=== PATIENT | female | born 1955 | race Caucasian/White ===

== ENCOUNTER 2019-11-10 22:30 | Emergency (ER) | payer SELFPAY ==
--- NOTE | 2019-11-10 23:21 | ER Document Report ---
ED General - General Chief Complaint: Fall Stated Complaint: FALL Time Seen by Provider: 11/10/19 23:19 - HPI Notes: 64-year-old female arrives following fall. Patient refuses to answer questions about her visit to the emergency department today. Information is obtained from nursing and EMS report. Per EMS, patient fell off a barstool and hit the back of her head. A c-collar was initially placed however patient refusing to wear it. - Related Data Allergies/Adverse Reactions: No Known Allergies Allergy (Unverified 11/10/19 22:44) Past Medical History - General Information source: Emergency Med Personnel Cannot obtain history due to: Uncooperative - Social History Smoking Status: Current Every Day Smoker Frequency of alcohol use: Occasional Drug Abuse: None Family History: Other Review of Systems - Review of Systems -: Yes ROS unobtainable due to patient's medical condition Physical Exam - Vital signs Vitals: Temp 97.2 F 11/10/19 22:46 - General General appearance: Other - Initially sleeping, awoken to voice In distress: None - HEENT Head: Normocephalic, Atraumatic. No: Velarde's sign, Ecchymosis, Open wounds Extraocular movements intact: Yes Pupils: PERRL Neck: Other - No midline tenderness. Refusing to wear c-collar. - Respiratory Chest status: Nontender Breath sounds: Normal - Cardiovascular Rhythm: Regular Heart sounds: Normal auscultation - Abdominal Tenderness: Nontender - Back Back: Nontender. No: Deformity/step-off - Extremities General upper extremity: Normal inspection, Normal ROM General lower extremity: Normal inspection, Normal ROM Notes: Major joints palpated. There is no tenderness to bilateral arms, chest/thorax, back, pelvis, lower extremities - Neurological Neuro grossly intact: Yes [place] Coma Scale Eye Opening: Spontaneous [place] Coma Scale Verbal: Oriented [place] Coma Scale Motor: Obeys Commands [place] Coma Scale Total: 15 Speech: Normal Motor strength normal: LUE, RUE, LLE, RLE - Psychological Associated symptoms: Agitated, Irritable - Skin Skin Temperature: Warm Course - Re-evaluation Re-evalutation: 64-year-old female arrives via EMS after she fell backwards off of a barstool, hitting her head. Patient refusing to answer questions at this time. She is alert and communicates, though most of what she says is profanities, she is also attempting to call her daughter. She is a GCS 15, she has no gross neuro deficits. No obvious scalp lacerations, no C-spine tenderness. Major joints palpated do not find any tenderness. CT head/C-spine ordered to assess given her age and presumed alcohol intoxication. Vitals stable. 11/10/19 23:44 Patient putting up resistance and declining CT exam with nursing. I went in to address with her, I explained that given her age and mechanism it is my duty to rule out intracranial or C-spine trauma. She is agreeable to go to scan. 11/10/19 23:57 Per nursing, patient on CT table however being aggressive with staff. Given that these scans are necessary to rule out life-threatening pathology, I have ordered 2.5 mg IM Haldol to help calm patient 11/11/19 00:13 After coming back from CT, patient became aggressive again towards staff. Security in the room to restrain her. She has received Haldol already, have ordered Ativan and Benadryl to further decrease her agitation 11/11/19 00:30 Patient loudly yelling multiple profanities and threatening statements 11/11/19 00:36 Received call from radiology, there is a nondepressed left occipital fracture with a small amount of associated subarachnoid hemorrhage 1 g Keppra IV to beordered 11/11/19 00:45 Called [facility] to initiate transfer 11/11/19 00:50 Trauma transfer to [facility] accepted, Dr Chin Additionally, patient's first name is Swati per transfer center 11/11/19 01:02 Given patient's continued agitation and concern for interfering with necessary treatment, have ordered 100mg IM ketamine - Vital Signs Vital signs: Temp Pulse Resp BP Pulse Ox 97.2 F 65 18 121/81 96 11/10/19 22:51 11/10/19 22:51 11/10/19 22:51 11/10/19 22:51 11/10/19 22:51 - Diagnostic Test Radiology reviewed: Image reviewed, Reports reviewed Discharge - Discharge Clinical Impression: Fall from stool, Aggressive behavior, SAH (subarachnoid hemorrhage) Skull fracture Qualifiers: Encounter type: initial encounter Skull bone/location: occipital bone Fracture type: closed Occipital fracture type: unspecified fracture of occiput Laterality: left Qualified Code(s): S02.119A - Unspecified fracture of occiput, initial encounter for closed fracture Disposition: [facility]
[2019-11-10] MEDS ORDERED: HALOPERIDOL LACTATE INJ 5 MG/1 ML VIAL IM ONE (23:56)
[2019-11-11] MEDS ORDERED: DIPHENHYDRAMINE HCL 50 MG/ML VIAL IM ONE (00:11)
[2019-11-11] MEDS ORDERED: LORAZEPAM INJ 2 MG/1 ML VIAL IM ONE (00:11)
--- NOTE | 2019-11-11 00:39 | RADIOLOGY REPORT (SQ) ---
EXAM DESCRIPTION: CT CERVICAL SPINE WITHOUT IV CONTRAST COMPLETED DATE/TME: 11/10/2019 23:27 CLINICAL HISTORY: Fall, head trauma COMPARISON: None available TECHNIQUE: Axial CT of the cervical spine obtained without contrast. FINDINGS: Straightening of the cervical lordosis may be secondary to patient positioning. Anterior fixation at C6/7. The atlantoaxial, atlantodental, and occipitoatlantal intervals are preserved. No acute fracture of the cervical spine identified. Prevertebral soft tissues are unremarkable. Moderate loss of intervertebral disc height with endplate spondylosis at C5/6. Mild multilevel facet arthropathy. Partial visualization of nondepressed left occipital skull fracture. No fracture of the visualized facial bones. Visualized mastoid air cells and paranasal sinuses are well aerated. Visualized thyroid is unremarkable. No cervical lymphadenopathy. No pneumothorax in the visualized lung apices. IMPRESSION: 1. No acute fracture or subluxation of the cervical spine. 2. Partial visualization of nondepressed left occipital fracture. 3. Multilevel degenerative change of the cervical spine. Prior anterior fixation at C6/7. This exam was performed according to our departmental dose-optimization program, which includes automated exposure control, adjustment of the mA and/or kV according to patient size and/or use of iterative reconstruction technique.
--- NOTE | 2019-11-11 00:41 | RADIOLOGY REPORT (SQ) ---
EXAM DESCRIPTION: CT HEAD WITHOUT IV CONTRAST COMPLETED DATE/TME: 11/10/2019 23:27 CLINICAL HISTORY: Fall, head trauma COMPARISON: None available TECHNIQUE: Axial CT of the head obtained from the skull apex to the skull base without contrast. FINDINGS: Linear focus of hyperdensity best seen on image #19, series 34 within a sulcal space in the left parieto-occipital region concerning for acute subarachnoid hemorrhage. No other areas concerning for acute hemorrhage. No mass effect or midline shift. Nondisplaced left occipital skull fracture. The ventricular system and sulcal spaces are enlarged. Scattered areas of hypodensity throughout the supratentorial white matter are nonspecific and may be related to chronic small vessel ischemic change. The visualized paranasal sinuses and the mastoids are clear. Minimal contusion within the left posterior scalp subcutaneous soft tissues. Visualized orbits and globes are unremarkable. Atherosclerotic calcification of the intracranial internal carotid arteries. IMPRESSION: 1. Possible small volume subarachnoid hemorrhage layering within a left posterior parieto-occipital sulcal space. 2. Nondepressed left occipital calvarial fracture. THIS REPORT CONTAINS FINDINGS THAT MAY BE CRITICAL TO PATIENT CARE: The findings were verbally discussed via telephone conference with Dr. MARILOU ASHTON by Dr. Austin Martin on 11/10/2019 11:38 PM CDT. The results were acknowledged and understood. This exam was performed according to our departmental dose-optimization program, which includes automated exposure control, adjustment of the mA and/or kV according to patient size and/or use of iterative reconstruction technique.
[2019-11-11] MEDS ORDERED: LEVETIRACETAM 1000 MG/NACL-ISO 1,000 MG/100 ML RTUPB IV ONE (00:52)
[2019-11-11] MEDS ORDERED: KETAMINE HCL INJ 500 MG/10 ML VIAL IM ONE (01:00)
[2019-11-11 01:37] LABS: ABSOLUTE BASOPHILS # (AUTO) 0.1 10^3/uL (0.0-0.2); ABSOLUTE EOSINOPHILS # (AUTO) 0.1 10^3/uL (0.0-0.6); ABSOLUTE LYMPHOCYTES (AUTO) 2.2 10^3/uL (0.5-4.7); ABSOLUTE MONOCYTES (AUTO) 0.4 10^3/uL (0.1-1.4); ABSOLUTE NEUT (AUTO) 7.3 10^3/uL (1.7-8.2); BASOPHILS % (AUTO) 1.1 % (0-2); HEMATOCRIT 42.2 % (36.0-47.0); HEMOGLOBIN 14.8 g/dL (12.0-15.5); LYMPHOCYTES % (AUTO) 21.9 % (13-45); MEAN CORPUSCULAR HEMOGLOBIN 32.6 pg (27.0-33.4); MEAN CORPUSCULAR VOLUME 93 fl (80-97); MONOCYTES % (AUTO) 4.4 % (3-13); PLATELET COUNT 253 10^3/uL (150-450); RED BLOOD COUNT 4.54 10^6/uL (3.72-5.28); RED CELL DISTRIBUTION WIDTH 13.8 % (11.5-14.0); SEGMENTED NEUTROPHILS % (AUTO) 71.6 % (42-78); TOTAL CELLS COUNTED % (AUTO) 100 %; WHITE BLOOD COUNT 10.2 10^3/uL (4.0-10.5)
[2019-11-11 01:50] LABS: INTERNATIONAL RATION (INR) 0.89; PROTHROMBIN TIME 12.3 SEC (11.4-15.4)
[2019-11-11 01:51] LABS: ALBUMIN 4.3 g/dL (3.5-5.0); ALCOHOL 243 mg/dL (NONE DETECTED); ALKALINE PHOSPHATASE 63 U/L (38-126); ANION GAP 12 (5-19); ASPARTATE AMINO TRANSFERASE 58 U/L (14-36); BILIRUBIN,DIRECT 0.3 mg/dL (0.0-0.4); BILIRUBIN,TOTAL 0.5 mg/dL (0.2-1.3); BLOOD UREA NITROGEN 11 mg/dL (7-20); CALCIUM 8.7 mg/dL (8.4-10.2); CARBON DIOXIDE 22 mmol/L (22-30); CHLORIDE 110 mmol/L (98-107); GLUCOSE 105 mg/dL (75-110); PARTIAL THROMBOPLASTIN TIME 34.2 SEC (23.5-35.8); POTASSIUM 4.2 mmol/L (3.6-5.0); TOTAL PROTEIN 6.7 g/dL (6.3-8.2)
--- NOTE | 2019-11-11 02:23 | RADIOLOGY REPORT (SQ) ---
EXAM DESCRIPTION: XR PELVIS 1-2 VIEWS COMPLETED DATE/TME: 11/11/2019 00:40 CLINICAL HISTORY: 64 years, Female, trauma COMPARISON: None. NUMBER OF VIEWS: 1 TECHNIQUE: AP pelvis LIMITATIONS: None. FINDINGS: Osteopenia. Sclerotic focus of the right femur likely reflects an enchondroma. Negative for acute fracture or dislocation IMPRESSION: No acute osseous abnormality copyright 2010 [employer]- All Rights Reserved
--- NOTE | 2019-11-11 02:23 | RADIOLOGY REPORT (SQ) ---
EXAM DESCRIPTION: XR CHEST 1 VIEW COMPLETED DATE/TME: 11/11/2019 00:40 CLINICAL HISTORY: 64 years, Female, trauma COMPARISON: None. NUMBER OF VIEWS: 1 TECHNIQUE: Portable chest LIMITATIONS: None. FINDINGS: The heart size is normal. Osteopenia. Postsurgical change cervical spine. Lungs are clear. No pneumothorax. Enchondroma or bone infarct of the left humerus IMPRESSION: No acute cardiopulmonary process copyright 2010 [employer]- All Rights Reserved
[2019-11-11 03:02] VITALS: BP 167/82
--- NOTE | 2019-11-11 07:51 | EKG REPORT ---
SEVERITY:- BORDERLINE ECG - SINUS RHYTHM LA ENLARGEMENT : Confirmed by: Piter Vasquez MD 11-Nov-2019 07:50:34
== END 2019-11-11 02:30 | disposition short-term general hospital (02) ==
LOC: ER 22:30
DX: S06.6X9A Traumatic subarachnoid hemorrhage with loss of consciousness of unspecified duration, initial encounter (principal); S02.119A Unspecified fracture of occiput, initial encounter for closed fracture; W08.XXXA Fall from other furniture, initial encounter; M47.812 Spondylosis without myelopathy or radiculopathy, cervical region; F17.200 Nicotine dependence, unspecified, uncomplicated; R45.4 Irritability and anger; R45.1 Restlessness and agitation; Z78.1 Physical restraint status
CPT/HCPCS: 93005; 99285; 96372; 96365; 36415; 82962; 80307; 85025; 85610; 85730; 80053; 71045; 72170; 70450; 72125; 93010; J1200; J1630; J3490; J2060; J1953